=== PATIENT | male | born 1975 | race Caucasian/White ===

== ENCOUNTER → 2019-07-05 | Outpatient (CLI) | payer OTHER ==
[2019-07-05 10:17] LABS: HEMATOCRIT 47.9 % (42.0-52.0); HEMOGLOBIN 16.6 g/dL (13.5-18.0)
== END ==
LOC: LAB 10:06
PROVIDERS: Urology
DX: E29.1 Testicular hypofunction (principal); D75.0 Familial erythrocytosis

== ENCOUNTER → 2020-04-21 | Outpatient (CLI) | payer OTHER ==
[2020-04-21 16:25] LABS: HEMATOCRIT 53.2 % (42.0-52.0)
== END ==
LOC: LAB 16:12
PROVIDERS: Urology
DX: E29.1 Testicular hypofunction (principal); D75.0 Familial erythrocytosis; R68.82 Decreased libido; R63.5 Abnormal weight gain; R53.83 Other fatigue

== ENCOUNTER → 2021-09-28 | Outpatient (CLI) | payer BC ==
[2021-09-28 17:20] LABS: HEMOGLOBIN 17.7 g/dL (13.5-18.0)
== END ==
LOC: LAB 17:05
PROVIDERS: Family Medicine
DX: D58.2 Other hemoglobinopathies (principal)

== ENCOUNTER → 2023-03-21 | Outpatient (CLI) | payer OTHER ==
[2023-03-21 13:18] LABS: HEMATOCRIT 53.3 % (42.0-52.0); HEMOGLOBIN 18.5 g/dL (13.5-18.0)
== END ==
LOC: LAB 13:04
PROVIDERS: Family Medicine
DX: D58.2 Other hemoglobinopathies (principal)